=== PATIENT | male | born 1935 | race Caucasian/White ===

== ENCOUNTER 2020-06-02 14:05 | Emergency (ER) | payer MEDICARE, OTHER ==
[~2020-06-02] VITALS: Ht 177.8 cm; Wt 90.7 kg
[~2020-06-02 14:05] MED LIST: FISH1000 PO; Flonase 0.05% N16 GM; LEVCAR10 PO; MULVITMIND PO; Vitamin B Comple1 EA PO; WARF5 PO; WARF7.5 PO
[2020-06-02] MEDS ORDERED: Lisinopril2.5 MG (14:29)
[2020-06-02] MEDS ORDERED: CODACE30 PO (16:47)
== END 2020-06-02 17:04 | disposition home or self-care (01) ==
LOC: ER 14:05
DX: S43.015A Anterior dislocation of left humerus, initial encounter (principal); I10 Essential (primary) hypertension; I48.91 Unspecified atrial fibrillation; Z86.73 Personal history of transient ischemic attack (TIA), and cerebral infarction without residual deficits; Z79.01 Long term (current) use of anticoagulants; Z88.0 Allergy status to penicillin; Z88.8 Allergy status to other drugs, medicaments and biological substances; Z79.899 Other long term (current) drug therapy; W01.0XXA Fall on same level from slipping, tripping and stumbling without subsequent striking against object, initial encounter
CPT/HCPCS: 23650; 36415; 73020; 73030; 73060; 99284-25; J2704; J7030

== ENCOUNTER 2024-05-23 11:34 | Emergency (ER) | payer OTHER ==
[~2024-05-23] VITALS: Ht 180.3 cm; Wt 81.7 kg
[~2024-05-23 11:34] MED LIST changes: +CARBIDOPA-LEVO1 EA21 PO; +CODACE30 PO; +ELIQUIS2.5 MG PO; +FURO40 PO; -LEVCAR10 PO; +LISI5 PO; +Lisinopril-Hct1 EAC4 PO; +METOPROLOL SUCC25 MG PO; +Terazosin HCl10 MG PO
[2024-05-23 12:21] LABS: BASOPHILS ABSOLUTE AUTO 0.01 K/mm3 (0.00-0.23); BASOPHILS PERCENT AUTO 0 % (0-2); EOSINOPHILS PERCENT AUTO 0 % (0-6); Hematocrit 24.8 % (37.0-53.0); Hemoglobin 8.4 g/dL (13.5-17.5); IMMATURE GRAN ABSOLUTE AUTO 0.04 K/mm3 (0.00-0.10); IMMATURE GRAN PERCENT AUTO 0 % (0-1); LYMPHOCYTES ABSOLUTE AUTO 0.28 K/mm3 (0.84-5.20); LYMPHOCYTES PERCENT AUTO 3 % (21-46); MONOCYTES ABSOLUTE AUTO 0.49 K/mm3 (0.16-1.47); MONOCYTES PERCENT AUTO 5 % (4-13); Mean Corpuscular HGB 32.9 pg (26.0-34.0); Mean Corpuscular HGB Conc 33.9 g/dL (31.5-36.5); Mean Corpuscular Volume 97 fL (80-100); Mean Platelet Volume 11.9 fL (9.1-12.4); NEUTROPHILS PERCENT AUTO 92 % (41-73); Platelet Count 78 K/mm3 (150-400); RDW Coefficient Variation 13.7 % (11.7-14.2); RDW Standard Deviation 48.9 fL (35.1-46.3); RETICULOCYTE ABSOLUTE 0.0385 M/mm3 (0.0200-0.1100); RETICULOCYTE COUNT PERCENT 1.51 % (0.50-2.50); Red Blood Cell Count 2.55 M/mm3 (4.30-5.90); White Blood Cell Count 9.62 K/mm3 (4.00-11.30)
[2024-05-23 12:40] LABS: Albumin, Blood 3.5 g/dL (3.4-5.0); Bilirubin, Total 1.2 mg/dL (0.1-1.0); Bun/Creatinine Ratio 45.5 (12.0-20.0); Calcium, Blood 8.8 mg/dL (8.5-10.1); Creatinine, Blood 1.01 mg/dL (0.60-1.20); Globulin, Blood 3.6 g/dL (2.2-4.0); Potassium, Blood 4.1 mmol/L (3.5-5.5); Total Protein, Blood 7.1 g/dL (6.4-8.2)
[2024-05-23] MEDS ORDERED: Acetaminophen 500 MG Tab PO ONE (13:20)
[2024-05-23 13:30] LABS: Influenza A, PCR NEGATIVE (NEGATIVE); Influenza B, PCR NEGATIVE (NEGATIVE); Resp Syncytial Virus, PCR NEGATIVE (NEGATIVE); SARS-Cov-2 (COVID-19) PCR, MMC NEGATIVE (NEGATIVE)
[2024-05-23 14:20] LABS: Source, Urine Clean Catch
[2024-05-23 14:26] LABS: Appearance, Urine Clear (Clear); Bilirubin, Urine Neg (Neg); Blood, Urine Neg (Neg); Glucose Qualitative, Urine Neg (Neg); Ketones, Urine Neg (Neg); Leukocyte Esterase, Urine Neg (Neg); Nitrite, Urine Neg (Neg); Protein, Urine 2+ (Neg); Specific Gravity, Urine 1.025 (1.003-1.022); Urobilinogen, Urine NORM (Normal)
[2024-05-23 14:51] LABS: Color, Urine Pale Yellow (P-Yellow)
[2024-05-23 14:54] LABS: Amorphous Light (0-Heavy); Bacteria Rare /hpf; Hyaline Casts 0-2 /lpf (0-2); Red Blood Cells, Urine 0-2 /hpf (0-2); Squamous Epithelial Cells Rare /hpf (Few); White Blood Cells, Urine 0-2 /hpf (0-5)
[2024-05-23 15:30] VITALS: BP 113/56
== END 2024-05-23 15:41 | disposition home or self-care (01) ==
LOC: ER 11:34
PROVIDERS: Emergency Medicine
DX: B34.9 Viral infection, unspecified (principal); I11.0 Hypertensive heart disease with heart failure; I50.20 Unspecified systolic (congestive) heart failure; I25.10 Atherosclerotic heart disease of native coronary artery without angina pectoris; D64.9 Anemia, unspecified; I48.91 Unspecified atrial fibrillation; G20.A1 Parkinson's disease without dyskinesia, without mention of fluctuations; Z88.0 Allergy status to penicillin; Z88.8 Allergy status to other drugs, medicaments and biological substances; Z79.01 Long term (current) use of anticoagulants; Z79.899 Other long term (current) drug therapy
CPT/HCPCS: 0241U; 71045; 80053; 81001; 83880; 84145; 84484; 85025; 85045; 86850; 86900; 86901; 93005; 93010; 99285-25; A9270

== ENCOUNTER 2024-05-28 16:54 | Emergency (ER) | payer MEDICARE, OTHER ==
[~2024-05-28] VITALS: Ht 177.8 cm; Wt 81.7 kg
[2024-05-28 17:33] LABS: BASOPHILS ABSOLUTE AUTO 0.01 K/mm3 (0.00-0.23); BASOPHILS PERCENT AUTO 0 % (0-2); EOSINOPHILS ABSOLUTE AUTO 0.01 K/mm3 (0.00-0.68); EOSINOPHILS PERCENT AUTO 0 % (0-6); Hematocrit 22.8 % (37.0-53.0); Hemoglobin 7.7 g/dL (13.5-17.5); IMMATURE GRAN ABSOLUTE AUTO 0.13 K/mm3 (0.00-0.10); IMMATURE GRAN PERCENT AUTO 1 % (0-1); LYMPHOCYTES ABSOLUTE AUTO 0.35 K/mm3 (0.84-5.20); LYMPHOCYTES PERCENT AUTO 3 % (21-46); MONOCYTES ABSOLUTE AUTO 1.19 K/mm3 (0.16-1.47); MONOCYTES PERCENT AUTO 11 % (4-13); Mean Corpuscular HGB 32.5 pg (26.0-34.0); Mean Corpuscular HGB Conc 33.8 g/dL (31.5-36.5); Mean Corpuscular Volume 96 fL (80-100); Mean Platelet Volume 10.9 fL (9.1-12.4); NEUTROPHILS ABSOLUTE AUTO 8.72 K/mm3 (1.96-9.15); NEUTROPHILS PERCENT AUTO 84 % (41-73); Platelet Count 185 K/mm3 (150-400); RDW Coefficient Variation 13.6 % (11.7-14.2); Red Blood Cell Count 2.37 M/mm3 (4.30-5.90); White Blood Cell Count 10.41 K/mm3 (4.00-11.30)
[2024-05-28 17:50] LABS: Albumin, Blood 2.6 g/dL (3.4-5.0); Albumin/Globulin Ratio 0.7 (0.8-1.8); Bilirubin, Total 1.6 mg/dL (0.1-1.0); Bun/Creatinine Ratio 48.1 (12.0-20.0); Calcium, Blood 7.9 mg/dL (8.5-10.1); Creatinine, Blood 1.06 mg/dL (0.60-1.20); Globulin, Blood 3.8 g/dL (2.2-4.0); Magnesium, Blood 2.5 mg/dL (1.6-2.4); Potassium, Blood 4.6 mmol/L (3.5-5.5); Total Protein, Blood 6.4 g/dL (6.4-8.2)
[2024-05-28] MEDS ORDERED: Lactated Ringer's 500 ML IV ONE (20:30)
[2024-05-28] MEDS ORDERED: DOXY100 PO (22:29)
[2024-05-28 22:30] VITALS: BP 111/51
[2024-05-28] MEDS ORDERED: Doxycycline Hyclate 100 MG TAB PO ONE (22:30)
[2024-05-28] MEDS ORDERED: Voltaren100 GM TOP (22:57)
[2024-06-02] MEDS ORDERED: DOXY100 PO (23:46)
[2024-06-02] MEDS ORDERED: SPIR25 PO (23:48)
[2024-06-02] MEDS ORDERED: CLOP75 PO (23:48)
[2024-06-02] MEDS ORDERED: TRAM50 PO (23:49)
[2024-06-02] MEDS ORDERED: SENN187 PO (23:50)
[2024-06-02] MEDS ORDERED: DOCU100 PO (23:50)
[2024-06-02] MEDS ORDERED: Vitamin C100 M1 PO (23:51)
[2024-06-02] MEDS ORDERED: NITR.4SL SL (23:51)
== END 2024-05-28 23:00 | disposition home or self-care (01) ==
LOC: ER 16:54
PROVIDERS: Physician Assistant
DX: M25.511 Pain in right shoulder (principal); X50.9XXA Other and unspecified overexertion or strenuous movements or postures, initial encounter; J18.9 Pneumonia, unspecified organism; E86.0 Dehydration; I11.0 Hypertensive heart disease with heart failure; I50.9 Heart failure, unspecified; I48.91 Unspecified atrial fibrillation; I25.10 Atherosclerotic heart disease of native coronary artery without angina pectoris; G20.A1 Parkinson's disease without dyskinesia, without mention of fluctuations; Z88.0 Allergy status to penicillin; Z88.8 Allergy status to other drugs, medicaments and biological substances; Z79.01 Long term (current) use of anticoagulants; Z79.899 Other long term (current) drug therapy
CPT/HCPCS: 71045; 73030; 80053; 83735; 83880; 85025; 96360; 99283-25; A9270; J7120

== ENCOUNTER 2025-02-26 09:18 | Inpatient (IN) | payer OTHER ==
[2025-02-26] VITALS (17 sets, daily range): BP systolic 97–142; BP diastolic 43–107
[~2025-02-26] VITALS: Ht 182.9 cm; Wt 86.0 kg
[~2025-02-26 09:18] MED LIST changes: +ACET325 PO; +ALEVE ARTHRITI100 GM TOP; +BISA10S PR; +CEFTRIAXON2 GM/50 M1 IV; +CLOP75 PO; +Cathflo Activase2 MG IV; +DOCU100 PO; +DOXY100 PO; +DULCOLAX400 MG/5 M PO; +ENSURE PLUS237 ML PO; +FURO20 PO; -FURO40 PO; +Florastor250 MG PO; +JARDIANCE10 MG PO; +JUVEN PACKET1 EAC3 PO; +METO25ER PO; +MIRALAX1714 PO; +NITR.4SL SL; +OMEGA-3 FISH O1 EAC6 PO; +OXYC5 PO; +PERIDEX15 ML MM; +SENN187 PO; +SENNA LAXATIVE8.6 MG PO; +SPIR25 PO; +TRAM50 PO; +VISBIOME 112.51 EACH PO; +VITAMIN E PO; +Vitamin C100 M1 PO; +Voltaren100 GM TOP
[2025-02-26 09:58] LABS: BASOPHILS ABSOLUTE AUTO 0.01 K/mm3 (0.00-0.23); BASOPHILS PERCENT AUTO 0 % (0-2); EOSINOPHILS ABSOLUTE AUTO 0.00 K/mm3 (0.00-0.68); EOSINOPHILS PERCENT AUTO 0 % (0-6); Hematocrit 24.7 % (37.0-53.0); Hemoglobin 8.0 g/dL (13.5-17.5); IMMATURE GRAN ABSOLUTE AUTO 0.09 K/mm3 (0.00-0.10); IMMATURE GRAN PERCENT AUTO 1 % (0-1); LYMPHOCYTES ABSOLUTE AUTO 0.66 K/mm3 (0.84-5.20); LYMPHOCYTES PERCENT AUTO 4 % (21-46); MONOCYTES ABSOLUTE AUTO 0.27 K/mm3 (0.16-1.47); MONOCYTES PERCENT AUTO 2 % (4-13); Mean Corpuscular HGB Conc 32.4 g/dL (31.5-36.5); Mean Corpuscular Volume 96 fL (80-100); NEUTROPHILS ABSOLUTE AUTO 15.28 K/mm3 (1.96-9.15); NEUTROPHILS PERCENT AUTO 94 % (41-73); NRBC ABSOLUTE 0.00 K/mm3 (0.00-0.02); NRBC Auto 0.0 /100 WBC (0.0-0.2); Platelet Count 132 K/mm3 (150-400); RDW Coefficient Variation 15.0 % (11.7-14.2); RDW Standard Deviation 52.4 fL (35.1-46.3)
[2025-02-26 09:59] LABS: pH Blood Arterial 7.48 (7.35-7.45)
[2025-02-26 10:18] LABS: Alanine Aminotransfer (ALT/SGP 34.0 U/L (12-78); Albumin, Blood 3.0 g/dL (3.4-5.0); Albumin/Globulin Ratio 0.7 (0.8-1.8); Anion Gap 13.0 mmol/L (3-11); Aspartate Aminotrans (AST/SGOT 51.0 U/L (12-37); Bilirubin, Total 1.4 mg/dL (0.1-1.0); Blood Urea Nitrogen 40.0 mg/dL (8-24); CO2, Blood 24.0 mmol/L (21-32); Calcium, Blood 8.5 mg/dL (8.5-10.1); Chloride, Blood 100.0 mmol/L (98-108); Creatinine, Blood 0.95 mg/dL (0.60-1.20); Globulin, Blood 4.6 g/dL (2.2-4.0); Glucose, Blood 118.0 mg/dL (70-99); Potassium, Blood 4.7 mmol/L (3.5-5.5); Sodium, Blood 132.0 mmol/L (136-145); Total Protein, Blood 7.6 g/dL (6.4-8.2)
[2025-02-26] MEDS ORDERED: NS 1,000 ML IV SCH (10:35)
[2025-02-26] MEDS ORDERED: Vancomycin (Pharmacy Consult) IV SCH (11:35)
[2025-02-26] MEDS ORDERED: CefTRIAXone Sodium 2,000 MG in NS 100 ML IV SCH (12:00)
[2025-02-26] MEDS ORDERED: CEPH250A PO (14:05)
[2025-02-26] MEDS ORDERED: FINA5 PO (14:06)
[2025-02-26] MEDS ORDERED: FLUT.05NI (14:07)
[2025-02-26] MEDS ORDERED: GABA100 PO (14:08)
[2025-02-26] MEDS ORDERED: MELA3 PO (14:09)
[2025-02-26] MEDS ORDERED: LORA10ER PO (14:09)
[2025-02-26] MEDS ORDERED: MIRT15 PO (14:10)
[2025-02-26] MEDS ORDERED: LUBRICANT EYE1 EAC1 (14:11)
[2025-02-26] MEDS ORDERED: LUBRICANT EYE1 EAC1 IO (14:13)
[2025-02-26] MEDS ORDERED: NASAL SPRAY88 ML (14:17)
[2025-02-26] MEDS ORDERED: TAMS.4ER PO (14:18)
[2025-02-26] MEDS ORDERED: LACT PO (18:03)
--- NOTE | 2025-02-26 21:01 | NUR ---
ASSUMPTION OF CARE: ASSUMED CARE OF PT AT 1915. PT ALERT AND ORIENTED TO PERSON AND PLACE. UNABLE TO STATE THE YEAR OR WHY HE'S HERE. PT FOLLOWING DIRECTION. ON RA CURRENTLY WITH SPO2 MID 90'S. DENIES SOB. FINE CRACKLES NOTED IN THE LUNG BASES. PHLEBOTOMIST LAB ASSISTANT IN PLACE, AFIB/PACED WITH HR 80-110'S. SBP 118-120'S. DENIES CP/PRESSURE. PIV TO LFA/RW BOTH PATENT AND SALINE LOCKED. ABLE TO TAKE PO MED WITH SIP OF WATER. VOIDING INTO URINAL WITH ASSIST. NO BM YET THIS SHIFT. BED LOCKED, BED ALARM FOR SAFETY. CALL LIGHT IN REACH.
[2025-02-27] VITALS (22 sets, daily range): BP systolic 100–150; BP diastolic 47–112
[2025-02-27 03:34] LABS: BASOPHILS ABSOLUTE AUTO 0.02 K/mm3 (0.00-0.23); BASOPHILS PERCENT AUTO 0 % (0-2); EOSINOPHILS ABSOLUTE AUTO 0.00 K/mm3 (0.00-0.68); EOSINOPHILS PERCENT AUTO 0 % (0-6); Hematocrit 22.4 % (37.0-53.0); Hemoglobin 7.4 g/dL (13.5-17.5); IMMATURE GRAN ABSOLUTE AUTO 0.12 K/mm3 (0.00-0.10); IMMATURE GRAN PERCENT AUTO 1 % (0-1); LYMPHOCYTES ABSOLUTE AUTO 0.33 K/mm3 (0.84-5.20); LYMPHOCYTES PERCENT AUTO 2 % (21-46); MONOCYTES ABSOLUTE AUTO 0.82 K/mm3 (0.16-1.47); MONOCYTES PERCENT AUTO 4 % (4-13); Mean Corpuscular HGB Conc 33.0 g/dL (31.5-36.5); Mean Corpuscular Volume 95 fL (80-100); NEUTROPHILS ABSOLUTE AUTO 18.62 K/mm3 (1.96-9.15); NEUTROPHILS PERCENT AUTO 94 % (41-73); NRBC ABSOLUTE 0.00 K/mm3 (0.00-0.02); NRBC Auto 0.0 /100 WBC (0.0-0.2); Platelet Count 111 K/mm3 (150-400); RDW Coefficient Variation 15.0 % (11.7-14.2); RDW Standard Deviation 51.8 fL (35.1-46.3)
[2025-02-27 04:02] LABS: Alanine Aminotransfer (ALT/SGP 30.0 U/L (12-78); Albumin, Blood 2.7 g/dL (3.4-5.0); Albumin/Globulin Ratio 0.7 (0.8-1.8); Anion Gap 11.0 mmol/L (3-11); Aspartate Aminotrans (AST/SGOT 43.0 U/L (12-37); Bilirubin, Total 0.9 mg/dL (0.1-1.0); Blood Urea Nitrogen 48.0 mg/dL (8-24); CO2, Blood 24.0 mmol/L (21-32); Calcium, Blood 8.0 mg/dL (8.5-10.1); Chloride, Blood 105.0 mmol/L (98-108); Creatinine, Blood 0.78 mg/dL (0.60-1.20); Globulin, Blood 3.9 g/dL (2.2-4.0); Glucose, Blood 118.0 mg/dL (70-99); Potassium, Blood 4.5 mmol/L (3.5-5.5); Sodium, Blood 135.0 mmol/L (136-145); Total Protein, Blood 6.6 g/dL (6.4-8.2)
--- NOTE | 2025-02-27 05:56 | NUR ---
SHIFT SUMMARY: PT INCREASINGLY CONFUSED T/O THE NIGHT. ORIENTED TO SELF ONLY. ATTEMPTED TO PLACE PT ON CPAP TONIGHT, PT PULLING IT OFF, SETTING OFF THE ALARM AND STATING THAT THE ALARM WAS HIS PHONE RINGING AND TO TAKE A MESSAGE. ATTEMPTED TO REORIENT PT UNSUCCESSFULLY. PT FREQUENTLY PULLING AT LINES. PT FINALLY ABLE TO REST THIS AM BUT MINIMALLY T/O THE NIGHT. PLACED ON 2L NC FOR SLEEP, SPO2 94-98%. DENIES SOB. SBP 90-120'S. MAP >65. DENIES CP. PT IN A PACED/AFIB RHYTHM WITH HR RANGING 70-110'S. TOLERATING WATER AND ICE CHIPS. ABLE TO USE URINAL WITH ASSIST. NO BM THIS SHIFT. PIV TO LFA AND RW BOTH PATENT AND SALINE LOCKED. BED LOCKED, BED ALARM ON, CALL LIGHT IN REACH.
[2025-02-27] MEDS ORDERED: Cefepime HCl 2,000 MG in NS 100 ML IV SCH ×2 (09:00→18:00)
[2025-02-27] MEDS ORDERED: Enoxaparin 40 MG/0.4 ML SYR SC SCH (09:00)
[2025-02-27] MEDS ORDERED: ARTIFICIAL TEAR15 M2 BOTHEYES (09:53)
[2025-02-27] MEDS ORDERED: ALBU2.5V5 INH (09:54)
[2025-02-27] MEDS ORDERED: Albuterol 2.5 MG/3 ML VIAL INH PRN (11:30)
--- NOTE | 2025-02-27 12:19 | NUR ---
REASSESSMENT PT HAS BEEN ALERT AND ORIENTED THIS MORNING. HE CONTINUES TO THINK THAT STAFF WOULDN'T LET HIM ANSWER HIS PHONE LAST NIGHT DESPITE EXPLANATIONS OF HIM MISTAKING THE CPAP ALARMS FOR HIS PHONE RINGING. HE GOT UP TO THE CHAIR FOR THE MORNING AND IS BACK IN BED NOW. DR. OLSEN OK'D DIET AND PT'S SON SAID THAT PT HAS BEEN ON A VERY SOFT DIET AT HIS FACILITY DUE TO GUM DISCOMFORT SINCE HIS TEETH WERE PULLED. PT HAS FULL DENTURES AND PUT THEM IN THIS MORNING. LUNGS HAVE BEEN CLEAR WITH FEW CRACKLES IN THE BASES. OXYGEN TITRATED OFF AND HE IS 98% ON RA. V-PACED, MAP ABOVE 65. VOIDING USING URINAL. PT'S SON VISITED FOR A COUPLE HOURS THIS MORNING AND WAS UPDATED BY NURSING STAFF AND DOCTOR OLSEN.
[2025-02-27] MEDS ORDERED: Saline Nasal Spray 45 ML SCH (14:00)
[2025-02-27 14:34] LABS: BASOPHILS ABSOLUTE AUTO 0.01 K/mm3 (0.00-0.23); BASOPHILS PERCENT AUTO 0 % (0-2); EOSINOPHILS ABSOLUTE AUTO 0.00 K/mm3 (0.00-0.68); EOSINOPHILS PERCENT AUTO 0 % (0-6); Hematocrit 23.4 % (37.0-53.0); Hemoglobin 7.8 g/dL (13.5-17.5); IMMATURE GRAN ABSOLUTE AUTO 0.15 K/mm3 (0.00-0.10); IMMATURE GRAN PERCENT AUTO 1 % (0-1); LYMPHOCYTES ABSOLUTE AUTO 0.46 K/mm3 (0.84-5.20); LYMPHOCYTES PERCENT AUTO 2 % (21-46); MONOCYTES ABSOLUTE AUTO 0.37 K/mm3 (0.16-1.47); MONOCYTES PERCENT AUTO 2 % (4-13); Mean Corpuscular HGB Conc 33.3 g/dL (31.5-36.5); Mean Corpuscular Volume 96 fL (80-100); NEUTROPHILS ABSOLUTE AUTO 18.11 K/mm3 (1.96-9.15); NEUTROPHILS PERCENT AUTO 95 % (41-73); NRBC ABSOLUTE 0.00 K/mm3 (0.00-0.02); NRBC Auto 0.0 /100 WBC (0.0-0.2); Platelet Count 109 K/mm3 (150-400); RDW Coefficient Variation 15.1 % (11.7-14.2); RDW Standard Deviation 53.4 fL (35.1-46.3)
--- NOTE | 2025-02-27 17:39 | NUR ---
SHIFT SUMMARY AFTER OXYGEN WAS TITRATED OFF, PT REMAINED ON RA THROUGHOUT THE DAY. LUNGS ARE CLEAR THIS EVENING. COUGH PRODUCING SMALL AMT OF SMITH SPUTUM. REMAINS V-PACED WITH MAP IN THE 90S CURRENTLY. HE HAS BEEN UP TO THE CHAIR TWICE TODAY. PT'S SON VISITED ON AND OFF THROUGHOUT THE DAY.
--- NOTE | 2025-02-27 20:41 | NUR ---
ASSUMPTION OF CARE: ASSUMED CARE OF PT AT 1910. PT ALERT AND ORIENTED TO PERSON, PLACE AND SELF. STILL CONFUSED ON THE YEAR. STATES IT IS 1970. PT PLEASANT WITH CARE AND ABLE TO MAKE NEEDS KNOWN. FORGETFUL AT TIMES. PT ON RA WITH SPO2 98% WITH SPOT CHECK. DENIES SOB, LUNGS CLEAR. PT MEDICAL NO TELE. V-PACED WITH HR 120'S WHEN ON MONITOR. SBP 130'S. DENIES CP. PIV TO LFA AND RW BOTH PATENT AND SALINE LOCKED. PT USING THE URINAL WITH ASSIST. NO BM YET. TOLERATING PO INTAKE. PT SPOKE WITH HIS AND SON THIS EVENING. AWAITING TRANSFER TO MEDICAL FLOOR. CALL LIGHT IN REACH.
[2025-02-27] MEDS ORDERED: Polyethylene Glycol 3350 17 gm PO SCH (21:00)
[2025-02-27] MEDS ORDERED: Dextran/Hypromellose/Glycerin 15 DROP/ML BTL BOTHEYES SCH (21:00)
--- NOTE | 2025-02-27 21:32 | NUR ---
TRANSFER TO MEDICAL: PT TRANSFERRED TO MEDICAL FLOOR ROOM 364. TAKEN BY WHEELCHAIR, ALL BELONGINGS SENT WITH THE PT. PT ORIGINALLY SUPPOSED TO GO TO ROOM 333, FAMILY UPDATED TO MOVE. RECEIVING NURSE TO CALL AND UPDATE FAMILY OF ROOM CHANGE.
[2025-02-28 05:02] LABS: BASOPHILS ABSOLUTE AUTO 0.01 K/mm3 (0.00-0.23); BASOPHILS PERCENT AUTO 0 % (0-2); EOSINOPHILS ABSOLUTE AUTO 0.00 K/mm3 (0.00-0.68); EOSINOPHILS PERCENT AUTO 0 % (0-6); Hematocrit 24.4 % (37.0-53.0); Hemoglobin 8.2 g/dL (13.5-17.5); IMMATURE GRAN ABSOLUTE AUTO 0.15 K/mm3 (0.00-0.10); IMMATURE GRAN PERCENT AUTO 1 % (0-1); LYMPHOCYTES ABSOLUTE AUTO 0.33 K/mm3 (0.84-5.20); LYMPHOCYTES PERCENT AUTO 2 % (21-46); MONOCYTES ABSOLUTE AUTO 0.66 K/mm3 (0.16-1.47); MONOCYTES PERCENT AUTO 3 % (4-13); Mean Corpuscular HGB Conc 33.6 g/dL (31.5-36.5); Mean Corpuscular Volume 95 fL (80-100); NEUTROPHILS ABSOLUTE AUTO 18.54 K/mm3 (1.96-9.15); NEUTROPHILS PERCENT AUTO 94 % (41-73); NRBC ABSOLUTE 0.00 K/mm3 (0.00-0.02); NRBC Auto 0.0 /100 WBC (0.0-0.2); Platelet Count 120 K/mm3 (150-400); RDW Coefficient Variation 15.2 % (11.7-14.2); RDW Standard Deviation 53.3 fL (35.1-46.3)
[2025-02-28 05:41] LABS: Alanine Aminotransfer (ALT/SGP 31.0 U/L (12-78); Albumin, Blood 2.8 g/dL (3.4-5.0); Albumin/Globulin Ratio 0.7 (0.8-1.8); Anion Gap 9.0 mmol/L (3-11); Aspartate Aminotrans (AST/SGOT 44.0 U/L (12-37); Bilirubin, Total 0.5 mg/dL (0.1-1.0); Blood Urea Nitrogen 47.0 mg/dL (8-24); CO2, Blood 25.0 mmol/L (21-32); Calcium, Blood 8.1 mg/dL (8.5-10.1); Chloride, Blood 105.0 mmol/L (98-108); Creatinine, Blood 0.67 mg/dL (0.60-1.20); Globulin, Blood 4.0 g/dL (2.2-4.0); Glucose, Blood 133.0 mg/dL (70-99); Potassium, Blood 4.4 mmol/L (3.5-5.5); Sodium, Blood 135.0 mmol/L (136-145); Total Protein, Blood 6.8 g/dL (6.4-8.2)
[2025-02-28 06:27] VITALS: BP 130/70
[2025-02-28 07:53] VITALS: BP 145/66
[2025-02-28] MEDS ORDERED: Fluticasone 0.05% Nasal Spray SCH (09:00)
[2025-02-28 12:47] LABS: Vancomycin, Trough 15.2 ug/mL (5.0-10.0)
[2025-02-28 15:47] VITALS: BP 136/68
[2025-02-28] MEDS ORDERED: NS 250 ML IV PRN (19:45)
[2025-02-28 20:52] VITALS: BP 147/72
--- NOTE | 2025-03-01 03:11 | NUR ---
SHIFT SUMMARY ISOLATION/ENHANCED D/T COVID. PT HAS TEMP OF 100.5, C/O CHILLS, COVERED WITH MULTIPLE BLANKETS. PRN TYLENOL ADMINISTERED. CPAP DURING NIGHT HRS, ON RA>96% AT HS. PT DENIES SOB, N/V, CP/PRESSURE. NO COUGH NOTED. VOIDING WELL, URINAL BY THE BEDSIDE. IV ABX INFUSED ORDERED. PT IS A/O X4, OCCASIONALLY FORGETFUL. REORIENTED. BED AT THE LOWEST POSITION, CALL LIGHT W/I REACH. PT IS ABLE TO MAKE HIS NEEDS KNOWN AND IS PLEASANT AND COOPERATIVE WITH CARE.
[2025-03-01 04:44] VITALS: BP 112/56
[2025-03-01 04:55] LABS: BASOPHILS ABSOLUTE AUTO 0.00 K/mm3 (0.00-0.23); BASOPHILS PERCENT AUTO 0 % (0-2); EOSINOPHILS ABSOLUTE AUTO 0.00 K/mm3 (0.00-0.68); EOSINOPHILS PERCENT AUTO 0 % (0-6); Hematocrit 23.8 % (37.0-53.0); Hemoglobin 8.0 g/dL (13.5-17.5); IMMATURE GRAN ABSOLUTE AUTO 0.26 K/mm3 (0.00-0.10); IMMATURE GRAN PERCENT AUTO 2 % (0-1); LYMPHOCYTES ABSOLUTE AUTO 0.08 K/mm3 (0.84-5.20); LYMPHOCYTES PERCENT AUTO 1 % (21-46); MONOCYTES ABSOLUTE AUTO 0.35 K/mm3 (0.16-1.47); MONOCYTES PERCENT AUTO 3 % (4-13); Mean Corpuscular HGB Conc 33.6 g/dL (31.5-36.5); Mean Corpuscular Volume 95 fL (80-100); NEUTROPHILS ABSOLUTE AUTO 12.25 K/mm3 (1.96-9.15); NEUTROPHILS PERCENT AUTO 95 % (41-73); NRBC ABSOLUTE 0.00 K/mm3 (0.00-0.02); NRBC Auto 0.0 /100 WBC (0.0-0.2); Platelet Count 114 K/mm3 (150-400); RDW Coefficient Variation 15.1 % (11.7-14.2); RDW Standard Deviation 52.9 fL (35.1-46.3)
[2025-03-01 05:16] LABS: Alanine Aminotransfer (ALT/SGP 34.0 U/L (12-78); Albumin, Blood 2.8 g/dL (3.4-5.0); Albumin/Globulin Ratio 0.7 (0.8-1.8); Anion Gap 11.0 mmol/L (3-11); Aspartate Aminotrans (AST/SGOT 38.0 U/L (12-37); Bilirubin, Total 0.8 mg/dL (0.1-1.0); Blood Urea Nitrogen 41.0 mg/dL (8-24); CO2, Blood 24.0 mmol/L (21-32); Calcium, Blood 8.4 mg/dL (8.5-10.1); Chloride, Blood 104.0 mmol/L (98-108); Creatinine, Blood 0.75 mg/dL (0.60-1.20); Globulin, Blood 3.9 g/dL (2.2-4.0); Glucose, Blood 115.0 mg/dL (70-99); Potassium, Blood 3.9 mmol/L (3.5-5.5); Sodium, Blood 135.0 mmol/L (136-145); Total Protein, Blood 6.7 g/dL (6.4-8.2)
[2025-03-01 07:50] VITALS: BP 125/74
[2025-03-01 15:33] VITALS: BP 124/65
--- NOTE | 2025-03-01 16:36 | NUR ---
PATIENT AMBULATED TO RESTROOM A FEW TIMES THIS SHIFT, STEADIER ON HIS FEET THE DAYS PROGRESS. PATIENT STILL ASKING FOR TEMP TO BE TURNED UP IN ROOM HE IS COLD BUT ROOM IS VERY WARM. PATIENT THEN VERBALLY AGREES THAT IT IS WARM. COOPERATIVE WITH CARE. NO CONCERNS AT THIS TIME.
[2025-03-01 19:19] VITALS: BP 132/70
--- NOTE | 2025-03-02 04:08 | NUR ---
SHIFT SUMMARY NO ACUTE EVENTS DURING THIS SHIFT. PT DENIES PAIN, AFEBRILE. CPAP DURING NIGHT HRS. PT DID NOT GET MUCH SLEEP DURING THIS SHIFT. CONTINUOUS PULSE OX O2 SAT'S>98% ON RA. NO COUGH NOTED. PLAN IS TO D/C TODAY BACK TO [facility] WHERE THE PT LIV[facility]. BED AT THE LOWEST POSITION, CALL LIGHT WITHIN REACH. PT USES CALL LIGHT APPROPRIATELY. PT IS A/O X3-4, ABLE TO MAKE HIS NEEDS KNOWN AND COOPERATIVE WITH CARE.
[2025-03-02 04:57] VITALS: BP 117/50
[2025-03-02 04:59] LABS: BASOPHILS ABSOLUTE AUTO 0.03 K/mm3 (0.00-0.23); BASOPHILS PERCENT AUTO 0 % (0-2); EOSINOPHILS ABSOLUTE AUTO 0.00 K/mm3 (0.00-0.68); EOSINOPHILS PERCENT AUTO 0 % (0-6); Hematocrit 23.6 % (37.0-53.0); Hemoglobin 7.9 g/dL (13.5-17.5); IMMATURE GRAN ABSOLUTE AUTO 0.13 K/mm3 (0.00-0.10); IMMATURE GRAN PERCENT AUTO 1 % (0-1); LYMPHOCYTES ABSOLUTE AUTO 0.49 K/mm3 (0.84-5.20); LYMPHOCYTES PERCENT AUTO 2 % (21-46); MONOCYTES ABSOLUTE AUTO 0.68 K/mm3 (0.16-1.47); MONOCYTES PERCENT AUTO 3 % (4-13); Mean Corpuscular HGB Conc 33.5 g/dL (31.5-36.5); Mean Corpuscular Volume 95 fL (80-100); NEUTROPHILS ABSOLUTE AUTO 20.01 K/mm3 (1.96-9.15); NEUTROPHILS PERCENT AUTO 94 % (41-73); NRBC ABSOLUTE 0.00 K/mm3 (0.00-0.02); NRBC Auto 0.0 /100 WBC (0.0-0.2); Platelet Count 106 K/mm3 (150-400); RDW Coefficient Variation 15.1 % (11.7-14.2); RDW Standard Deviation 52.2 fL (35.1-46.3)
[2025-03-02 05:30] LABS: Alanine Aminotransfer (ALT/SGP 38.0 U/L (12-78); Albumin, Blood 2.5 g/dL (3.4-5.0); Albumin/Globulin Ratio 0.6 (0.8-1.8); Anion Gap 7.0 mmol/L (3-11); Aspartate Aminotrans (AST/SGOT 33.0 U/L (12-37); Bilirubin, Total 0.5 mg/dL (0.1-1.0); Blood Urea Nitrogen 37.0 mg/dL (8-24); CO2, Blood 28.0 mmol/L (21-32); Calcium, Blood 8.2 mg/dL (8.5-10.1); Chloride, Blood 103.0 mmol/L (98-108); Creatinine, Blood 0.7 mg/dL (0.60-1.20); Globulin, Blood 3.9 g/dL (2.2-4.0); Glucose, Blood 125.0 mg/dL (70-99); Potassium, Blood 4.2 mmol/L (3.5-5.5); Sodium, Blood 134.0 mmol/L (136-145); Total Protein, Blood 6.4 g/dL (6.4-8.2)
[2025-03-02 08:11] VITALS: BP 141/75
[2025-03-02 10:14] VITALS: BP 124/63
--- NOTE | 2025-03-02 11:04 | NUR ---
RN NOTE MR QURESHI IS ORIENTATED X3, SOME BASELINE CONFUSION. APPROPRIATE CONVERSATION. SON AT BEDSIDE. PLAN TO TRANSPORT BACK TO [place] THIS MORNING VIA [facility]. REPORT CALLED TO YESSY CLARKE AT THE [place]. MR QURESHI DENIES ANY PAIN, MINIMAL DRY COUGH, NO SHORTNESS OF BREATH. USING URINAL, CONTINENT OF URINE. BED ALARM HAS BEEN IN USE. CALL LIGHT IN REACH.
[2025-03-02] MEDS ORDERED: CIPR750 PO (12:44)
--- NOTE | 2025-03-02 12:49 | NUR ---
[facility] TRANSFERED PT FROM [facility] TO [facility] AT 1225HRS. NO NEW QUESTIONS OR CONCERNS PRIOR TO DISCHARGE.
== END 2025-03-02 12:26 | disposition home or self-care (01) | DRG 871 ==
LOC: ER 09:18 → ERHOLD 11:29 → ICUE 15:38 → MEDS 02-27 21:29
PROVIDERS: Emergency Medicine; ADMIT Family Medicine
PROC: XW0DXM6 Introduction of Baricitinib into Mouth and Pharynx, External Approach, New Technology Group 6 (ICD-10-PCS; principal; 2025-02-26)
PROC: 4A033R1 Measurement of Arterial Saturation, Peripheral, Percutaneous Approach (ICD-10-PCS; 2025-02-26)
PROC: 5A09357 Assistance with Respiratory Ventilation, Less than 24 Consecutive Hours, Continuous Positive Airway Pressure (ICD-10-PCS; 2025-02-26)
PROC: 3E03329 Introduction of Other Anti-infective into Peripheral Vein, Percutaneous Approach (ICD-10-PCS; 2025-02-26)
PROC: 8E0ZXY6 Isolation (ICD-10-PCS; 2025-02-27)
PROC: 3E0DX3Z Introduction of Anti-inflammatory into Mouth and Pharynx, External Approach (ICD-10-PCS; 2025-02-27)
DX: A41.52 Sepsis due to Pseudomonas (principal); G93.41 Metabolic encephalopathy; J12.82 Pneumonia due to coronavirus disease 2019; J96.01 Acute respiratory failure with hypoxia; R65.21 Severe sepsis with septic shock; U07.1 COVID-19; J15.9 Unspecified bacterial pneumonia; E87.21 Acute metabolic acidosis; I48.20 Chronic atrial fibrillation, unspecified; I50.32 Chronic diastolic (congestive) heart failure; G47.9 Sleep disorder, unspecified; I11.0 Hypertensive heart disease with heart failure; I25.10 Atherosclerotic heart disease of native coronary artery without angina pectoris; G20.A1 Parkinson's disease without dyskinesia, without mention of fluctuations; N40.0 Benign prostatic hyperplasia without lower urinary tract symptoms; Z88.8 Allergy status to other drugs, medicaments and biological substances; Z88.0 Allergy status to penicillin; Z88.5 Allergy status to narcotic agent; Z79.01 Long term (current) use of anticoagulants; Z79.84 Long term (current) use of oral hypoglycemic drugs; Z79.02 Long term (current) use of antithrombotics/antiplatelets; Z95.2 Presence of prosthetic heart valve; Z86.73 Personal history of transient ischemic attack (TIA), and cerebral infarction without residual deficits; Z79.891 Long term (current) use of opiate analgesic
CPT/HCPCS: 36415; 36600; 71045; 80053; 80202; 82803; 83605; 83880; 84484; 85025; 85651; 86140; 87040; 87077; 87186; 93005; 93010; 94660; 94762; 96360; 99285-25; A9270; C9399; J0692; J0696; J3373; J7030; J7040; J7050; J7120